=== PATIENT | male | born 1950 | race Caucasian/White ===

== ENCOUNTER 2017-09-06 15:52 | Emergency (ER) | payer MEDICARE, OTHER ==
[2017-09-06 16:14] VITALS: O2SAT 95
--- NOTE | 2017-09-06 16:33 | ED.PDOC ---
History of Present Illness - General Chief Complaint: Neuro Symptoms/Deficits Stated Complaint: Episode of visual disturbance/inability to focus Time Seen by Provider: 09/06/17 16:29 Source: patient Exam Limitations: no limitations - History of Present Illness Timing/Duration: other - episode began 1 hr USED [employer] and lasted 5 mins Severity: moderate Improving Factors: nothing Worsening Factors: nothing Associated Symptoms: vision changes - blurred vision without speech or movement problems Allergies/Adverse Reactions: Allergies NO KNOWN ALLERGY Allergy (Verified 09/06/17 16:30) Home Medications: Ambulatory Orders Lisinopril 20 mg PO DAILY 09/06/17 Meloxicam 15 mg PO DAILY 09/06/17 Review of Systems - Review of Systems Constitutional: Denies: chills, fever, weakness EENTM: States: blurred vision, double vision. Denies: eye pain, ear pain Respiratory: Denies: cough, short of breath Cardiology: Denies: chest pain, edema Gastrointestinal/Abdominal: Denies: abdominal pain, nausea, vomiting Genitourinary: States: no symptoms reported Musculoskeletal: States: joint pain Skin: Denies: change in color, rash Neurological: States: anxiety, headache. Denies: numbness, paresthesia, pre- existing deficit, weakness Past Medical History (General) - Patient Medical History Hx Stroke: No Hx Asthma: No - seasonal allergies Hx Congestive Heart Failure: No Hx Hypertension: Yes Hx Diabetes: No Surgical History: other - Vaccination History Hx Influenza Vaccination: Yes - 2016 Hx Pneumococcal Vaccination: Yes - 2014 - Social History Hx Tobacco Use: No Family Medical History - Family History Father Living Status: Age at (years of age): 52 Cause of : [place] Physical Exam - Physical Exam General Appearance: Alert, Anxious, Restless Eye Exam: bilateral normal ENT Exam: normal ENT inspection, pharynx normal Neck: non-tender, full range of motion, supple, normal inspection, other - No bruits Respiratory: lungs clear, normal breath sounds, no respiratory distress Cardiovascular/Chest: normal peripheral pulses, regular rate, rhythm, no edema Gastrointestinal/Abdominal: normal bowel sounds, non tender, soft Extremities Exam: non-tender, normal range of motion, no edema Mental Status: alert, oriented x 3 area coordinator Exam: normal hearing, normal speech, PERRL Coordination/Gait: normal gait Motor/Sensory: no motor deficit, no sensory deficit Skin Exam: normal color, warm/dry Departure - Departure Clinical Impression: Vision disturbance Disposition: Discharge to Home or Self Care Departure Forms: ED Discharge - Pt. Copy, Patient Portal Self Enrollment Referrals: Sonido Frazier MD [Primary Care Provider] - 1-2 Weeks Home Medications: Ambulatory Orders Lisinopril 20 mg PO DAILY 09/06/17 Meloxicam 15 mg PO DAILY 09/06/17 Additional Instructions: one aspirin per day
--- NOTE | 2017-09-06 17:23 | CT ---
EXAM DESCRIPTION: Head CLINICAL HISTORY: altered vision COMPARISON: None Available TECHNIQUE: Contiguous axial CT images of the head were obtained. Coronal and sagittal reconstructions were created from the axial data. This exam was performed according to our departmental dose-optimization program, which includes automated exposure control, adjustment of the mA and/or kV according to patient size and/or use of iterative reconstruction technique. FINDINGS: No intraorbital abnormality is seen. There is no evidence of acute mass, mass effect, midline shift or hemorrhage. The ventricles and extra-axial CSF spaces are unremarkable. The brain parenchyma appears normal for the patient's age. No acute abnormalities of the bones is seen. IMPRESSION: No acute intracranial abnormality. Electronically signed by: Gary Garcias 09/06/2017 5:22 PM CDT
[2017-09-06 19:10] VITALS: BP 136/88; TEMP 97.1
== END 2017-09-06 18:15 | disposition home or self-care (01) ==
LOC: ER 15:52
DX: H53.8 Other visual disturbances (principal); I10 Essential (primary) hypertension

== ENCOUNTER → 2018-04-15 | Outpatient (CLI) | payer MEDICARE, OTHER ==
--- NOTE | 2018-04-16 09:06 | CT ---
EXAM DESCRIPTION: Abdomen w/o Contrast CLINICAL HISTORY: 68 years Male, RUQ MASS, AMYLOIDOSIS COMPARISON: None. FINDINGS: In the lower chest, there are areas of linear scarring or discoid atelectasis are seen in the lingula and in both lower lobes. Heart is prominent in size. Small pericardial effusion is present, predominantly located anteriorly. There is moderate coronary arterial calcification. Spleen is enlarged measuring 16 cm on diagonal measurement. Accessory splenule is present measuring 1.8 cm. No focal liver lesion. Gallbladder appears normal with no calcified intraluminal stones. Minimal ventral herniation of omental fat is seen anteriorly just above the umbilicus measuring 1.9 cm. Small left renal cyst measures 1.7 cm. No renal stones or hydronephrosis. Coronal and sagittal reformatted images confirm the findings. On the coronal images, splenic length is 18.6 cm. Liver is prominent in size measuring 19 cm in craniocaudal length. No liver surface irregularity to suggest cirrhosis. IMPRESSION: Splenomegaly. Prominent liver without cirrhotic changes. Small pericardial effusion. Electronically signed by: Maurice Pérez MD 04/16/2018 9:05 AM [facility]
== END ==
LOC: CT 08:46
PROVIDERS: ATTEND Internal Medicine Hematology & Oncology
DX: E85.81 Light chain (AL) amyloidosis (principal); R19.01 Right upper quadrant abdominal swelling, mass and lump; R16.1 Splenomegaly, not elsewhere classified; I31.3 Pericardial effusion (noninflammatory)

== ENCOUNTER → 2018-09-22 | Outpatient (CLI) | payer MEDICARE, OTHER ==
--- NOTE | 2018-09-22 14:39 | US ---
EXAM DESCRIPTION: Soft Tissue,Extremity CLINICAL HISTORY: 68 years Male, FOREARM LUMP JUST ABOVE ANTECUBITEL FOSSES ON LEFT ARM history of amyloidosis, nontender mass x2 months at area of concern COMPARISON: None. FINDINGS: Ultrasound of the subcutaneous soft tissues just proximal to the anterior aspect of the left elbow and antecubital fossa was performed. At the area of concern, there is a 1.7 cm round heterogeneous but predominantly hypoechoic mass deep to the skin surface with little or no internal vascularity. There is an adjacent 4 mm round hypoechoic avascular lesion. No adjacent interstitial edema or overlying skin thickening. IMPRESSION: Two hypoechoic masses in the subcutaneous soft tissues at the area of concern anteriorly in the right elbow. Differential considerations include hematoma, less likely neoplasm. Given provided history, amyloid deposit should also be considered. Electronically signed by: Greg Butler MD 09/22/2018 2:36 PM CDT
== END ==
LOC: US 10:25
PROVIDERS: ATTEND Internal Medicine Hematology & Oncology
DX: D17.22 Benign lipomatous neoplasm of skin and subcutaneous tissue of left arm (principal); E85.81 Light chain (AL) amyloidosis

== ENCOUNTER 2019-07-04 06:17 | Emergency (ER) | payer MEDICARE, OTHER ==
[2019-07-04] MEDS: IPRATROPIUM/ALBUTEROL 3 ML VIAL NEB ONE (06:30)
--- NOTE | 2019-07-04 06:49 | ED.PDOC ---
History of Present Illness - General Source: patient, RN notes reviewed, Vital Signs reviewed, family Exam Limitations: no limitations - History of Present Illness Comments: This is a 69-year-old gentleman with a history of peritoneal dialysis and ESRD presenting to the emergency room for 4 to 5 days of progressively worsening cough, congestion, dyspnea, and wheezing. No history of COPD/asthma. Reports scant mucoid sputum production, no hemoptysis. No new leg swelling. He denies any fever or sick contacts. He has not seen a primary care doctor any physician since the onset of his symptoms. He has been taking [id number] cough medications and steroid nasal spray without much improvement. His last PD was this morning, normal fluid output. He denies any abdominal pain or abdominal distention. Timing/Duration: week Cough Quality/Degree: moderate, productive cough, sputum Possible Cause: no prior episodes Improving Factors: nothing Worsening Factors: nothing Associated Symptoms: cough, shortness of breath, wheezing Respiratory Risk Factors: no cause identified <Asif Matias - Last Filed: 07/04/19 06:47> - General Source: patient, RN notes reviewed, Vital Signs reviewed, family - , police Exam Limitations: no limitations - History of Present Illness Comments: Patient is a 69-year-old male who for the last 5 days has been coughing. The cough is worse when he lies down and better when he sits up. The cough is nonproductive. Patient is tried [id number] medicines without relief. Patient denies any fever, chills, nausea, vomiting or diarrhea. Patient is a peritoneal dialysis patient who recently changed his dialysis regimen. Patient and his spoke to their dialysis nurse last week and were expecting a call back on Friday. Their concern is that he is not getting enough fluid off during his peritoneal dialysis. Cough Quality/Degree: moderate, dry cough Possible Cause: no prior episodes Improving Factors: other - Sitting up Worsening Factors: other - Supine position Associated Symptoms: cough, shortness of breath, wheezing Respiratory Risk Factors: no cause identified <Lele Steinberg - Last Filed: 07/04/19 08:50> - General Chief Complaint: Respiratory Problem Stated Complaint: Cough, chest congestion, sinus drainage Time Seen by Provider: 07/04/19 06:33 - History of Present Illness Allergies/Adverse Reactions: Allergies NO KNOWN ALLERGY Allergy (Verified 07/04/19 06:50) Home Medications: Ambulatory Orders Lisinopril 20 mg PO DAILY 09/06/17 Meloxicam 15 mg PO DAILY 09/06/17 Review of Systems - Review of Systems Constitutional: Denies: chills, fever EENTM: States: nose congestion, throat pain. Denies: blurred vision, ear pain, mouth pain Respiratory: States: cough, short of breath, wheezing Gastrointestinal/Abdominal: Denies: abdominal pain, diarrhea, nausea, vomiting Genitourinary: States: other - Makes small amounts of urine. Denies: dysuria, hematuria Musculoskeletal: Denies: back pain, joint pain, joint swelling, muscle pain, muscle stiffness Skin: Denies: lesions, rash Neurological: Denies: headache, numbness, paresthesia Endocrine: States: no symptoms reported Hematologic/Lymphatic: States: no symptoms reported <Asif Matias - Last Filed: 07/04/19 06:47> - Review of Systems Constitutional: States: see HPI. Denies: chills, fever EENTM: States: see HPI, nose congestion, throat pain. Denies: blurred vision, ear pain, mouth pain Respiratory: States: see HPI, cough, short of breath, wheezing. Denies: stridor Cardiology: States: no symptoms reported. Denies: chest pain, palpitations, syncope Gastrointestinal/Abdominal: States: no symptoms reported. Denies: abdominal pain, diarrhea, nausea, vomiting Genitourinary: States: no symptoms reported, other. Denies: dysuria, hematuria Musculoskeletal: States: no symptoms reported. Denies: back pain, joint pain, joint swelling, muscle pain, muscle stiffness Skin: States: no symptoms reported. Denies: change in color, rash Neurological: States: no symptoms reported. Denies: headache, numbness, paresthesia, tingling, weakness Endocrine: States: no symptoms reported. Denies: excessive sweating, intolerance to cold, intolerance to heat Hematologic/Lymphatic: States: no symptoms reported All other Systems: Reviewed and Negative <Lele Steinberg - Last Filed: 07/04/19 08:50> Past Medical History (General) - Patient Medical History Hx Stroke: No Hx Asthma: No - seasonal allergies Hx Congestive Heart Failure: No Hx Hypertension: Yes Hx Diabetes: No - Vaccination History Hx Influenza Vaccination: Yes - 2016 Hx Pneumococcal Vaccination: Yes - 2015 - Social History Hx Tobacco Use: No <Asif Matias - Last Filed: 07/04/19 06:47> Family Medical History - Family History Father Living Status: Age at (years of age): 52 Cause of : [place] <Asif Matias - Last Filed: 07/04/19 06:47> Physical Exam - Physical Exam General Appearance: Alert, Comfortable, No apparent distress ENT Exam: TMs normal, pharynx normal, nasal congestion, nasal drainage Neck: full range of motion, supple, normal inspection Respiratory: chest non-tender, no respiratory distress, no accessory muscle use, crackles - The bilateral bases, left greater than right Cardiovascular/Chest: regular rate, rhythm, no edema, no JVD Gastrointestinal/Abdominal: non tender, soft Extremity: normal range of motion, non-tender, normal inspection Neurologic: alert, normal mood/affect, oriented x 3 Skin Exam: normal color, warm/dry <Asif Matias - Last Filed: 07/04/19 06:47> - Physical Exam General Appearance: Alert, Comfortable, Well Developed, Well Groomed, Well Hydrated, Well Nourished Eye Exam: bilateral normal ENT Exam: hearing grossly normal, pharynx normal, nasal congestion, nasal drainage Neck: full range of motion, supple, normal inspection, trachea midline Respiratory: chest non-tender, no respiratory distress, no accessory muscle use, crackles Cardiovascular/Chest: regular rate, rhythm, no edema, no JVD, no murmur Gastrointestinal/Abdominal: normal bowel sounds, non tender, soft, no organomegaly Extremity: normal range of motion, non-tender, normal inspection Neurologic: financial administrative assistant II-XII nml as tested, no motor/sensory deficits, alert, normal mood/affect, oriented x 3 Skin Exam: normal color, warm/dry Lymphatic: no adenopathy <Lele Steinberg - Last Filed: 07/04/19 08:50> Progress - Progress Progress: 07/04/19 07:[address] Matias to Dr. Steinberg. He will assume care of the patient heretofore. <Asif Matias - Last Filed: 07/04/19 06:47> - Progress Progress: Differential diagnosis: Pneumonia, viral URI, volume overload, sinusitis among others. 07/04/19 08:47 After discussion with the on-call dialysis nurseLinda, recommendations were for them to do to manual dialysis utilizing 4.25 L x 1 hour and then drain the fluid. This is believed by the dialysis nurse to take off enough fluid so that patient's condition can be temporized until seen by the doctor tomorrow. I discussed this plan of care with the patient and his and they voiced understanding and agreement. Plan on discharge home at this time. Lele Steinberg M.D. #[id number] - Results/Orders Results/Orders: 07/04/19 06:45 EKG STAT 07/04/19 06:52 BLOOD CULTURE Stat Laboratory Results - last 24 hr 07/04/19 07/04/19 07/04/19 06:52 06:52 06:52 WBC 10.2 RBC 3.11 L Hgb 11.2 L Hct 33.8 L MCV 108.5 H MCH 35.9 H MCHC 33.1 RDW 15.3 H Plt Count 275 MPV 9.4 Absolute Neuts (auto) 5.90 Absolute Lymphs (auto) 2.70 Absolute Monos (auto) 1.00 H Absolute Eos (auto) 0.30 Absolute Basos (auto) 0.10 Neutrophils % 58.4 Lymphocytes % 26.9 Monocytes % 10.3 H Eosinophils % 3.1 Basophils % 1.3 Normal RBC Morphology 2+macrocytosis Sodium 136 Potassium 4.7 Chloride 96 L Carbon Dioxide 21 Anion Gap 23.7 H BUN 78 H Creatinine 17.20 H* BUN/Creatinine Ratio 4.5 L Random Glucose 82 Serum Osmolality 294.4 Lactic Acid 0.7 Calcium 8.5 Total Bilirubin 0.6 AST 40 ALT 28 Alkaline Phosphatase 75 Serum Total Protein 6.2 L Albumin 2.9 L Globulin 3.3 Albumin/Globulin Ratio 0.9 L Chest x-ray TECHNIQUE: PA and lateral views of the chest. Comparison: May 07, 2012. Clinical history: SOB, cough. Heart size: Normal. Lungs: No acute consolidation. Chronic interstitial stranding at the lung bases noted. Pleura: No pleural effusion. No pneumothorax. Mediastinum and britni: Unremarkable. Skeletal: Unremarkable. IMPRESSION: 1. No acute findings in the chest. Electronically signed by: Wood Owens MD 07/04/2019 7:17 AM <Lele Steinberg - Last Filed: 07/04/19 08:50> Departure <Asif Matias - Last Filed: 07/04/19 06:47> - Departure Time of Disposition: 08:49 Diet: resume usual diet Activity: increase activity as tolerated <Lele Steinberg - Last Filed: 07/04/19 08:50> - Departure Clinical Impression: Cough, End stage renal disease on dialysis Volume overload Qualifiers: Hypervolemia type: other Qualified Code(s): E87.79 - Other fluid overload Disposition: Discharge to Home or Self Care Condition: Good Departure Forms: ED Discharge - Pt. Copy, Patient Portal Self Enrollment Instructions: End Stage Kidney Disease (DC) Referrals: Apolinar Scott MD [Primary Care Provider] - 1-2 Days Home Medications: Ambulatory Orders Lisinopril 20 mg PO DAILY 09/06/17 Meloxicam 15 mg PO DAILY 09/06/17
[2019-07-04] MEDS ORDERED: cefTRIAXone SODIUM 1 GM VIAL ONE (07:08)
[2019-07-04] MEDS ORDERED: SODIUM CHL 0.9% 50ML MIN-BAG+ 50 ML IVPB ONE (07:09)
[2019-07-04] MEDS: cefTRIAXone SODIUM 1 GM in SODIUM CHL 0.9% 50ML MIN-BAG+ 50 ML IVPB ONE (07:13)
--- NOTE | 2019-07-04 07:23 | RAD ---
: 1950. TECHNIQUE: PA and lateral views of the chest. Comparison: May 07, 2012. Clinical history: SOB, cough. Heart size: Normal. Lungs: No acute consolidation. Chronic interstitial stranding at the lung bases noted. Pleura: No pleural effusion. No pneumothorax. Mediastinum and britni: Unremarkable. Skeletal: Unremarkable. IMPRESSION: 1. No acute findings in the chest. Electronically signed by: Wood Owens MD 07/04/2019 7:17 AM [employer]
[2019-07-04 09:05] VITALS: BP 104/68; TEMP 97.5; O2SAT 94
== END 2019-07-04 09:00 | disposition home or self-care (01) ==
LOC: ER 06:17
DX: R05 Cough (principal); N18.6 End stage renal disease; E87.79 Other fluid overload; I45.10 Unspecified right bundle-branch block; I45.81 Long QT syndrome; I12.0 Hypertensive chronic kidney disease with stage 5 chronic kidney disease or end stage renal disease; Z99.2 Dependence on renal dialysis
CPT/HCPCS: 36415; 71046; 80053; 83605; 85025; 87040; 93005; 94640; J0696; J7050; J7620